=== PATIENT | female | born 1980 | race African-American/Black ===

== ENCOUNTER 2018-08-08 20:06 | Emergency (ER) | payer OTHER ==
[2018-08-08 20:15] VITALS: BP 117/71; PULSE 100; TEMP 98.5; BMI 26.2
[2018-08-08] MEDS ORDERED: ASPIRIN 81 MG CHEWABLE TABLETS PO ONE (21:25)
[2018-08-08] MEDS ORDERED: SODIUM CHLORIDE 1,000 ML IV ONE (21:25)
--- NOTE | 2018-08-08 21:44 | PDOC ---
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 At approx. 7pm while sitting on her bed, patient says she felt "[place]flies in my stomach" accompanied by sweating and palpitations. She then proceeded to the restroom to have a BM and shortly after felt chest and throat tightness. The tightness progressed and was accompanied by headache, dizziness and lightheadnesss. Her HR at this time was 133 and EMS was alerted. Upon arrival of EMS, her HR improved to 114 however her palpitations and abdominal discomfort continued. Denies any recent trauma, travel, sick contacts or recent medication changes. Denies any Fevers, chills, weakness, chest pain, SOB, nausea, vomiting, diarrhea , constipation, dysuria. PCP: Dr. Jefferson PMHx: As above PSHx: B/L Ovarian cyst removal Allergies: Seafood, Shellfish, Oats, PCN, Prednisone, Lipitor, Eliquism Azithromycin, Clindamycin, Augmentin Social: Denies Tobacco, EtOH and drug use FHx: Mother with HTN, Father with DM Past History - Past Medical History Allergies/Adverse Reactions: Allergies Allergy/AdvReac Type Severity Reaction Status Date / Time amoxicillin [From Augmentin] Allergy Verified 08/08/18 20:16 apixaban [From Eliquis] Allergy Verified 08/08/18 20:16 atorvastatin [From Lipitor] Allergy Verified 08/08/18 20:16 azithromycin Allergy Verified 08/08/18 20:16 clavulanic acid Allergy Verified 08/08/18 20:16 [From Augmentin] clindamycin Allergy Verified 08/08/18 20:16 Penicillins Allergy Verified 08/08/18 20:16 prednisone Allergy Verified 08/08/18 20:16 Anemia: Yes Asthma: Yes CVA: Yes (TIA) COPD: No Hypercholesterolemia: Yes Thyroid Disease: Yes (hyper) Other medical history: FIBROMYALGIA - Suicide/Smoking/Psychosocial Hx Smoking History: Never smoked Review of Systems - Review of Systems Constitutional: No: Chills, Fever, Weakness HEENTM: No: Double Vision Respiratory: No: Cough, Shortness of Breath Cardiac (ROS): Yes: Lightheadedness, Palpitations, Chest Tightness. No: Chest Pain, Edema ABD/GI: No: Abdominal Distended, Constipated, Diarrhea, Nausea, Vomiting : No: Dysuria, Hematuria Neurological: No: Numbness, Tingling *Physical Exam - Vital Signs Last Vital Signs Temp Pulse Resp BP Pulse Ox 98.5 F 100 H 18 117/71 99 08/08/18 20:12 08/08/18 20:12 08/08/18 20:12 08/08/18 20:12 08/08/18 20:12 - Physical Exam General Appearance: Yes: Nourished, Appropriately Dressed HEENT: positive: EOMI, SABRINA. negative: Pharyngeal Erythema, Tonsillar Exudate Respiratory/Chest: positive: Lungs Clear, Normal Breath Sounds. negative: Crackles, Rhonchi, Wheezing Cardiovascular: positive: Regular Rhythm, Regular Rate, S1, S2. negative: Edema , JVD, Murmur Gastrointestinal/Abdominal: positive: Normal Bowel Sounds, Soft. negative: Distended, Guarding, Rebound, Tenderness Musculoskeletal: negative: CVA Tenderness Extremity: negative: Swelling Neurologic: positive: head waitress II-XII NML intact, Fully Oriented, Alert, Motor Strength 5/5. negative: Sensory Deficit ED Treatment Course - LABORATORY CBC & Chemistry Diagram: 08/08/18 21:49 08/08/18 21:49 Medical Decision Making - Medical Decision Making 08/08/18 21:44 37 y/o F with PMHx of PE (now on coumadin, dx in 2013, Unprovoked, managed at [facility]), Hyperthyroidism, Meningioma, Asthma, Anemia, Gastroparesis, Fibromyalgia , HLD, Osteoporosis, Previous TIA presents with palpitations. Concern for Arrhythmia, metabolic derraingements, anemia, dehydration. Will Check EKG, CBC, CMP, Cardiac profile, CXR, PT/INR, TSH. Give 1L NS Bolus, ASA 162mg. Tele monitoring. 08/08/18 23:38 No further episodes of palpitations. Labwork noted above--Microcytic Anemia, Elevated INR, Hypokalemia. Potassium repleted. EKG Reveals Sinus rhythm with 1st degree AV Block, HR 88, QTc 457. Will Advise to hold Coumadin for tmrw. CXR did not reveal infiltrates or effusions. DC home with follow up with cardiology and PCP. Patient agreeable with plan. Return precautions given. *DC/Admit/Observation/Transfer Diagnosis at time of Disposition: Palpitations - Discharge Dispostion Disposition: HOME Condition at time of disposition: Stable Decision to Admit order: No - Referrals Referrals: Nancy Jay MD [Primary Care Provider] - Yogi Gunter MD [Staff Physician] - - Patient Instructions Additional Instructions: You presented to the ER with Palpitations. Your lab work revealed you are anemic. Please follow up with your PCP and Cardiology as you will likely need further monitoring (Such as a holter monitor)--Please call and make an appointment, Your work up is not complete until you do so. Your INR was above your goal; Hold your coumadin for tomorrow 08/09 only and resume on 08/10. Continue all your other medications as prescribed. Please return to the ER if you have any signs or symptoms of chest pain, shortness of breath, fever, uncontrollable pain, chills, nausea, vomiting, numbness, tingling, or weakness in any part of your body, changes in vision or slurred speech. Please return to the ER if symptoms persist, worsen, or new symptoms arise. - Post Discharge Activity
[2018-08-08] MEDS ORDERED: METOCLOPRAMIDE HCL INJECTION 10 MG/2 ML VIAL IVPUSH ONE (21:47)
[2018-08-08] MEDS ORDERED: ASPIRIN 81 MG CHEWABLE TABLETS ONE (21:51)
[2018-08-08] MEDS ORDERED: METOCLOPRAMIDE HCL INJECTION 10 MG/2 ML VIAL ONE (21:51)
[2018-08-08 21:59] LABS: BASO % 0.5 % (0-2.0); EOS % 0.9 % (0-4.5); HEMATOCRIT 25.4 % (32.4-45.2); HEMOGLOBIN 8.1 GM/dL (10.7-15.3); LYMPH % 25.2 % (8-40); MCH 24.3 pg (25.7-33.7); MCHC 31.8 g/dl (32.0-36.0); MEAN CELL VOLUME 76.4 fl (80-96); MEAN PLT VOLUME 7.7 fl (7.5-11.1); MONO % 6.7 % (3.8-10.2); NEUT % 66.7 % (42.8-82.8); PLATELET COUNT 255 K/MM3 (134-434); RBC 3.33 M/mm3 (3.60-5.2); RDW 15.8 % (11.6-15.6); WHITE BLOOD COUNT 4.6 K/mm3 (4.0-10.0)
--- NOTE | 2018-08-08 22:07 | PDOC ---
Documentation entered by Christopher Mackenzie SCRIBE, acting as scribe for Magdy Bryant MD. Magdy Bryant MD: This documentation has been prepared by the Gurdeep cedeno Daniel, SCRIBE, under my direction and personally reviewed by me in its entirety. I confirm that the documentation accurately reflects all work, treatment, procedures, and medical decision making performed by me. Attending Attestation - Resident Resident Name: Susanna Queen - ED Attending Attestation I have performed the following: I have examined & evaluated the patient, The case was reviewed & discussed with the resident, I agree w/resident's findings & plan, Exceptions are as noted - HPI HPI: 08/08/18 21:29 The patient is a 37 year old female with a past medical history of unprovoked PE (on coumadin), hyperthyroidism, gastroparesis, fibromyalgia, OA, and TIA here today for evaluation of palpitations and chest tightness. The patient reports that around 7 PM she began to feel butterflies in her stomach as well as chest tightness, palpitations, and general weakness why she was on her bed. She reports drinking water with no relief. She notes a similar episode of palpitations in the past and reports currently being symptomless. pt does endorse a mild pressure like headache currently without asociated vision changes , numbnes/tingling/weakness. pts notes she does not sleep very much, usually ~3hrs a night. Patient denies lightheadedness. Denies fever, chills. Denies chest pain, shortness of breath. Denies nausea, vomiting, diarrhea, abdominal pain. Denies urinary symptoms. Soc history: Pt denies any stimulant use, etoh abuse, drug use PCP: Juliette Jefferson - Physicial Exam PE: 08/08/18 22:01 GENERAL: The patient is awake, alert, and fully oriented, Nontoxic - in no acute distress. HEAD: Normocephalic, atraumatic. EYES: extraocular movements intact, sclera anicteric, conjunctiva clear. ENT: Normal voice, Moist mucous membranes. NECK: Normal range of motion, supple, no palpable masses LUNGS: Breath sounds equal, clear to auscultation bilaterally. No wheezes, no rhonchi, no rales. HEART: Regular rate and rhythm, normal S1 and S2 without murmur, rub or gallop. ABDOMEN: Soft, nontender, No guarding, no rebound. . No CVA tenderness EXTREMITIES: Normal range of motion, no edema. NEUROLOGICAL: No facial assymetry, Normal speech, PSYCH: Normal mood, normal affect. SKIN: Warm, Dry, normal turgor, - Medical Decision Making 08/08/18 21:19 37y F hx of PE (on coumadin), hyperthyriodism, gastroparesis, fibromyalgia, OA, TIA, presents with complaint of 'butterflies in her stomach', throat and chest tightness, palpitations lasting several hours. Pt notes she frequently feels these sypmtoms - almost daily but today was much longer than usual. Pt has seen her doc previously and recently had her TSH checked (but hasnt received results) . pt feeling improved currently but does endorse a mild headache. ddx - hyperthyroidism , anemia, metabolic derangement, dehdyration, anxiety will ck labs, ekg will give fluids, reglan will reassess 08/08/18 23:09 labs reviewed noted to be mildly anemic k at 3.4 -will replete orally tsh wnl will dc wiht pmd fu 08/08/18 23:45 cxr clear on my wet read ekg noted for 1st degree block, otherwise wnl will dc with pmd fu return precautions were discussed Heart Score/ECG Review - ECG Impressions Comment:: 08/08/18 23:45 Twelve-lead EKG was performed and reviewed by me. There is normal sinus rhythm with a normal rate. First degree AV block
[2018-08-08 22:14] LABS: INR 3.23 (0.83-1.09); PROTHROMBIN TIME (PATIENT) 38.6 SEC (9.7-13.0)
[2018-08-08 22:27] LABS: ALBUMIN 3.3 g/dl (3.4-5.0); ALK PHOS 76 U/L (45-117); ANION GAP 7 MMOL/L (8-16); BILIRUBIN,TOTAL 0.1 mg/dL (0.2-1); BLOOD UREA NITROGEN 9.4 mg/dL (7-18); CALCIUM 8.5 mg/dL (8.5-10.1); CHLORIDE 109 mmol/L (98-107); CO2 25 mmol/L (21-32); CREATININE 0.7 mg/dL (0.55-1.3); GLUCOSE,RANDOM 100 mg/dL (74-106); POTASSIUM 3.4 mmol/L (3.5-5.1); SGOT/AST 3 U/L (15-37); SGPT/ALT 14 U/L (13-61); SODIUM 141 mmol/L (136-145); TOT PROT 6.9 g/dl (6.4-8.2)
[2018-08-08] MEDS ORDERED: POTASSIUM CHLORIDE ORAL LIQUID 20 MEQ/15 ML PO ONE (22:40)
[2018-08-08] MEDS ORDERED: POTASSIUM CHLORIDE ORAL LIQUID 20 MEQ/15 ML ONE (22:41)
[2018-08-08] MEDS: POTASSIUM CHLORIDE TABS 20 MEQ TABLET.ER (FP) PO ONE ×2 (22:43→22:44)
--- NOTE | 2018-08-09 13:36 | EKG ---
Test Reason : Blood Pressure : / mmHG Vent. Rate : 088 BPM Atrial Rate : 088 BPM P-R Int : 218 ms QRS Dur : 086 ms QT Int : 378 ms P-R-T Axes : 067 069 068 degrees QTc Int : 457 ms SINUS RHYTHM WITH 1ST DEGREE A-V BLOCK OTHERWISE NORMAL ECG NO PREVIOUS ECGS AVAILABLE Confirmed by TRACY CHAVEZ MD ([id number]) on 08/09/2018 1:36:22 PM Referred By: Confirmed By:TRACY CHAVEZ MD
== END 2018-08-08 23:49 | disposition home or self-care (01) ==
LOC: JER 20:06
PROC: 3E0337Z Introduction of Electrolytic and Water Balance Substance into Peripheral Vein, Percutaneous Approach (ICD-10-PCS; principal; 2018-08-08)
PROC: 3E033GC Introduction of Other Therapeutic Substance into Peripheral Vein, Percutaneous Approach (ICD-10-PCS; 2018-08-08)
PROC: 3E033GC Introduction of Other Therapeutic Substance into Peripheral Vein, Percutaneous Approach (ICD-10-PCS; 2018-08-08)
DX: R00.2 Palpitations (principal); E87.6 Hypokalemia; D50.9 Iron deficiency anemia, unspecified; D68.9 Coagulation defect, unspecified; E05.90 Thyrotoxicosis, unspecified without thyrotoxic crisis or storm; K31.84 Gastroparesis; J45.909 Unspecified asthma, uncomplicated; M19.90 Unspecified osteoarthritis, unspecified site; M79.7 Fibromyalgia; E78.5 Hyperlipidemia, unspecified; Z86.711 Personal history of pulmonary embolism; Z79.01 Long term (current) use of anticoagulants; Z86.73 Personal history of transient ischemic attack (TIA), and cerebral infarction without residual deficits
CPT/HCPCS: 36415; 71046-TC-FY; 80053; 82550; 83735; 84443; 84484; 84703; 85025; 85610; 93005; 93010; 99282-25; J7030

== ENCOUNTER 2020-03-10 10:13 | Inpatient (IN) | payer OTHER ==
[2020-03-10] MEDS ORDERED: SODIUM CHLORIDE 1,000 ML IV SCH (11:00)
[2020-03-10] MEDS ORDERED: ACETAMINOPHEN INJECTION 100 ML IVPB ONE (11:00)
[2020-03-10] MEDS ORDERED: METOCLOPRAMIDE HCL INJECTION 10 MG/2 ML VIAL ONE (11:00)
[2020-03-10] MEDS ORDERED: METOCLOPRAMIDE HCL INJECTION 10 MG/2 ML VIAL IVPB ONE (11:11)
[2020-03-10] MEDS ORDERED: ACETAMINOPHEN 1000 MG/100 ML VIAL (NON FORMULARY) IVPB ONE (11:11)
[2020-03-10 11:28] LABS: URINE APPEARANCE CLOUDY; URINE BILIRUBIN NEGATIVE (NEGATIVE); URINE COLOR YELLOW; URINE GLUCOSE (UA) NEGATIVE (NEGATIVE); URINE KETONE NEGATIVE (NEGATIVE); URINE LEUK ESTERASE NEGATIVE (NEGATIVE); URINE NITRITE NEGATIVE (NEGATIVE); URINE PROTEIN NEGATIVE (NEGATIVE); URINE UROBILINOGEN 0.2 mg/dL (0.2-1.0)
[2020-03-10 11:30] LABS: BASO % 0.2 % (0-2.0); HEMATOCRIT 34.5 % (32.4-45.2); HEMOGLOBIN 11.1 GM/dL (10.7-15.3); LYMPH % 21.9 % (8-40); MCH 27.6 pg (25.7-33.7); MCHC 32.1 g/dl (32.0-36.0); MEAN CELL VOLUME 85.9 fl (80-96); MEAN PLT VOLUME 7.7 fl (7.5-11.1); MONO % 6.1 % (3.8-10.2); NEUT % 70.8 % (42.8-82.8); PLATELET COUNT 236 K/MM3 (134-434); RBC 4.01 M/mm3 (3.60-5.2); RDW 24.3 % (11.6-15.6); WHITE BLOOD COUNT 3.5 K/mm3 (4.0-10.0)
[2020-03-10 11:36] LABS: INR 2.22 (0.83-1.09); PROTHROMBIN TIME (PATIENT) 26.7 SEC (9.7-13.0)
[2020-03-10 11:39] LABS: ACTIVATED PTT 37.9 SECONDS (25.2-36.5)
[2020-03-10 11:54] LABS: CHLORIDE 110 mmol/L (98-107); POTASSIUM 3.6 mmol/L (3.5-5.1); SODIUM 143 mmol/L (136-145)
[2020-03-10 11:57] LABS: CALCIUM 8.9 mg/dL (8.5-10.1)
[2020-03-10 11:58] LABS: ALBUMIN 3.8 g/dl (3.4-5.0); ANION GAP 3 MMOL/L (8-16); BLOOD UREA NITROGEN 9.2 mg/dL (7-18); CO2 29 mmol/L (21-32); GLUCOSE,RANDOM 88 mg/dL (74-106)
[2020-03-10 11:59] LABS: CHOLESTEROL 239 mg/dL (50-200); CREATININE 0.7 mg/dL (0.55-1.3)
[2020-03-10 12:00] LABS: TRIGLYCERIDES 85 mg/dL (0-150)
[2020-03-10 12:01] LABS: LDL CHOLESTEROL (ONLY SJRH) 150 mg/dL (5-100); SGOT/AST 7 U/L (15-37); SGPT/ALT 15 U/L (13-61)
[2020-03-10 12:02] LABS: BILIRUBIN,TOTAL 0.4 mg/dL (0.2-1); HDL CHOLESTEROL 67 mg/dL (40-60); TOT PROT 7.4 g/dl (6.4-8.2)
[2020-03-10 12:04] LABS: ALK PHOS 78 U/L (45-117)
[2020-03-10 12:14] LABS: ANISOCYTOSIS 1+; MACROCYTOSIS 1+; OVALOCYTE 1+; PLATELET ESTIMATE NORMAL
[2020-03-10] MEDS ORDERED: HYDROCORTISONE SOD SUCCINATE 100 MG/2 ML VIAL ONE ×2 (13:32→15:33)
[2020-03-10] MEDS: HYDROCORTISONE SOD SUCCINATE 100 MG/2 ML VIAL IVPB ONE ×2 (13:32→14:20)
[2020-03-10] MEDS ORDERED: ALBUTEROL SO4 HFA INHALER IH PRN (15:27)
[2020-03-10] MEDS ORDERED: PANTOPRAZOLE SODIUM 40 MG VIAL ONE (15:33)
[2020-03-10] MEDS: PANTOPRAZOLE SODIUM 40 MG VIAL IVPUSH SCH (15:50)
[2020-03-10] MEDS ORDERED: HYDROCORTISONE SOD SUCCINATE 100 MG/2 ML VIAL IVPB ONE (16:40)
[2020-03-10 17:33] LABS: CHLORIDE 110 mmol/L (98-107); POTASSIUM 3.4 mmol/L (3.5-5.1); SODIUM 141 mmol/L (136-145)
[2020-03-10 17:35] LABS: ALBUMIN 3.5 g/dl (3.4-5.0); ANION GAP 4 MMOL/L (8-16); BLOOD UREA NITROGEN 8.4 mg/dL (7-18); CALCIUM 8.4 mg/dL (8.5-10.1); CO2 27 mmol/L (21-32); GLUCOSE,RANDOM 83 mg/dL (74-106)
[2020-03-10 17:38] LABS: CREATININE 0.6 mg/dL (0.55-1.3); SGOT/AST 5 U/L (15-37); SGPT/ALT 14 U/L (13-61)
[2020-03-10 17:40] LABS: BILIRUBIN,TOTAL 0.2 mg/dL (0.2-1); TOT PROT 6.8 g/dl (6.4-8.2)
[2020-03-10 17:41] LABS: ALK PHOS 74 U/L (45-117)
[2020-03-10] MEDS ORDERED: POTASSIUM CHLORIDE TABS 20 MEQ TABLET.ER (FP) PO ONE (18:18)
[2020-03-10 18:29] VITALS: BMI 24.0
[2020-03-10] MEDS ORDERED: methylPREDNISolone 8 MG TABLET PO SCH (21:00)
[2020-03-10] MEDS ORDERED: PT OWN MED DRAWER 7, Y5N ONE (23:03)
[2020-03-10] MEDS: QUEtiapine FUMARATE 200 MG TABLET PO SCH (23:33)
[2020-03-10] MEDS: OXcarbazepine 150 MG TABLET (UD) PO SCH (23:34)
[2020-03-11] MEDS ORDERED: PT OWN MED DRAWER 7, Y5N ONE (05:23)
[2020-03-11] MEDS ORDERED: diphenhydrAMINE HCL 25 MG CAPSULE (FP) PO ONE (08:00)
[2020-03-11 08:22] LABS: POTASSIUM 3.5 mmol/L (3.5-5.1)
[2020-03-11 08:24] LABS: CALCIUM 8.4 mg/dL (8.5-10.1); INR 2.49 (0.83-1.09); PROTHROMBIN TIME (PATIENT) 29.3 SEC (9.7-13.0)
[2020-03-11 08:25] LABS: BLOOD UREA NITROGEN 8.4 mg/dL (7-18); MAGNESIUM 1.8 mg/dL (1.8-2.4)
[2020-03-11 08:26] LABS: BASO % 0.3 % (0-2.0); EOS % 1.6 % (0-4.5); HEMATOCRIT 31.2 % (32.4-45.2); HEMOGLOBIN 10.3 GM/dL (10.7-15.3); MCH 28.3 pg (25.7-33.7); MCHC 33.2 g/dl (32.0-36.0); MEAN CELL VOLUME 85.2 fl (80-96); MEAN PLT VOLUME 7.8 fl (7.5-11.1); NEUT % 54.1 % (42.8-82.8); PLATELET COUNT 228 K/MM3 (134-434); RBC 3.66 M/mm3 (3.60-5.2); RDW 23.9 % (11.6-15.6); WHITE BLOOD COUNT 4.2 K/mm3 (4.0-10.0)
[2020-03-11 08:28] LABS: CREATININE 0.6 mg/dL (0.55-1.3); PHOSPHOROUS 2.1 mg/dL (2.5-4.9)
[2020-03-11] MEDS: QUEtiapine FUMARATE 200 MG TABLET PO SCH (10:05)
[2020-03-11] MEDS: OXcarbazepine 150 MG TABLET (UD) PO SCH (10:05)
[2020-03-11] MEDS: PANTOPRAZOLE SODIUM 40 MG VIAL IVPUSH SCH (10:05)
[2020-03-11 15:28] VITALS: BP 95/63; PULSE 78; TEMP 98.1
[2020-03-11] MEDS ORDERED: WARFARIN NA 3 MG TABLET PO SCH (18:00)
== END 2020-03-11 18:03 | disposition home or self-care (01) | DRG 55 ==
LOC: JER 10:13 → JERBED 13:57 → J4S 18:32 → J4W 03-11 07:09
PROVIDERS: ATTEND Nurse Practitioner Family
DX: D42.9 Neoplasm of uncertain behavior of meninges, unspecified (principal); G40.89 Other seizures; I69.854 Hemiplegia and hemiparesis following other cerebrovascular disease affecting left non-dominant side; I69.351 Hemiplegia and hemiparesis following cerebral infarction affecting right dominant side; R20.0 Anesthesia of skin; E05.90 Thyrotoxicosis, unspecified without thyrotoxic crisis or storm; M79.7 Fibromyalgia; E78.5 Hyperlipidemia, unspecified; R51.9 Headache, unspecified; R07.89 Other chest pain; J45.909 Unspecified asthma, uncomplicated; F41.8 Other specified anxiety disorders
CPT/HCPCS: 36415; 70450-TC; 70551-TC; 70552-TC; 71045-TC-FY; 80048; 80053; 80061; 81003; 82550; 83721; 83735; 84100; 84439; 84443; 84481; 84484; 85025; 85610; 85730; 86769; 86850; 86900; 86901; 93005; 93010; 93306-TC; 93880-TC; 97116-GP; 97161-GP; 99285-25; A9579; C9803; U0003

== ENCOUNTER 2020-03-16 10:54 | Emergency (ER) | payer OTHER ==
[2020-03-16 11:23] VITALS: TEMP 98.5; BMI 24.4
[2020-03-16] MEDS ORDERED: ACETAMINOPHEN 1000 MG/100 ML VIAL (NON FORMULARY) IVPB ONE (11:50)
[2020-03-16] MEDS ORDERED: LACTATED RINGERS SOLUTION 1000 ML INFUS.BAG IV ONE (11:50)
[2020-03-16 12:03] LABS: BASO % 0.2 % (0-2.0); EOS % 4.1 % (0-4.5); HEMATOCRIT 32.3 % (32.4-45.2); HEMOGLOBIN 10.6 GM/dL (10.7-15.3); LYMPH % 22.9 % (8-40); MCHC 32.9 g/dl (32.0-36.0); MEAN CELL VOLUME 84.9 fl (80-96); MEAN PLT VOLUME 7.6 fl (7.5-11.1); MONO % 5.7 % (3.8-10.2); NEUT % 67.1 % (42.8-82.8); PLATELET COUNT 219 K/MM3 (134-434); RBC 3.81 M/mm3 (3.60-5.2); RDW 22.6 % (11.6-15.6); WHITE BLOOD COUNT 3.8 K/mm3 (4.0-10.0)
[2020-03-16] MEDS ORDERED: ACETAMINOPHEN INJECTION 100 ML IVPB ONE (12:06)
[2020-03-16 12:10] LABS: INR 1.93 (0.83-1.09); PROTHROMBIN TIME (PATIENT) 23.3 SEC (9.7-13.0)
[2020-03-16 12:13] LABS: ACTIVATED PTT 33.9 SECONDS (25.2-36.5)
[2020-03-16 12:30] LABS: POTASSIUM 3.6 mmol/L (3.5-5.1)
[2020-03-16 12:32] LABS: ALBUMIN 3.3 g/dl (3.4-5.0); BLOOD UREA NITROGEN 12.2 mg/dL (7-18); CALCIUM 8.5 mg/dL (8.5-10.1)
[2020-03-16 12:35] LABS: CREATININE 0.7 mg/dL (0.55-1.3)
[2020-03-16 12:37] LABS: BILIRUBIN,TOTAL 0.2 mg/dL (0.2-1); TOT PROT 6.6 g/dl (6.4-8.2)
[2020-03-16 13:00] LABS: ANISOCYTOSIS 1+; MACROCYTOSIS 1+; PLATELET ESTIMATE NORMAL
[2020-03-16 13:33] LABS: MAGNESIUM 1.9 mg/dL (1.8-2.4)
[2020-03-16 14:24] VITALS: BP 94/61; PULSE 88
== END 2020-03-16 14:24 | disposition home or self-care (01) ==
LOC: JER 10:54
DX: R00.2 Palpitations (principal)
CPT/HCPCS: 36415; 80053; 83735; 85025; 85610; 85730; 93005; 93010; 99284-25

== ENCOUNTER 2020-08-23 10:08 | Observation (INO) | payer OTHER ==
[2020-08-23 11:20] LABS: BASO % 0.3 % (0-2.0); EOS % 1.4 % (0-4.5); HEMATOCRIT 34.3 % (32.4-45.2); HEMOGLOBIN 11.4 GM/dL (10.7-15.3); LYMPH % 27.6 % (8-40); MCH 27.5 pg (25.7-33.7); MCHC 33.1 g/dl (32.0-36.0); MEAN CELL VOLUME 82.9 fl (80-96); MEAN PLT VOLUME 7.6 fl (7.5-11.1); MONO % 4.7 % (3.8-10.2); PLATELET COUNT 225 10^3/uL (134-434); RBC 4.14 M/mm3 (3.60-5.2); RDW 19.3 % (11.6-15.6); WHITE BLOOD COUNT 3.1 K/mm3 (4.0-10.0)
[2020-08-23 11:26] LABS: INR 3.27 (0.83-1.09); PROTHROMBIN TIME (PATIENT) 38.9 SEC (9.7-13.0)
[2020-08-23 11:29] LABS: ACTIVATED PTT 40.4 SECONDS (25.2-36.5)
[2020-08-23 11:41] LABS: CHLORIDE 110 mmol/L (98-107); SODIUM 143 mmol/L (136-145)
[2020-08-23 11:43] LABS: ALBUMIN 3.8 g/dl (3.4-5.0); CALCIUM 8.6 mg/dL (8.5-10.1)
[2020-08-23 11:44] LABS: ANION GAP 7 MMOL/L (8-16); BLOOD UREA NITROGEN 8.2 mg/dL (7-18); CO2 25 mmol/L (21-32); GLUCOSE,RANDOM 88 mg/dL (74-106)
[2020-08-23 11:47] LABS: CREATININE 0.6 mg/dL (0.55-1.3); SGOT/AST 8 U/L (15-37); SGPT/ALT 15 U/L (13-61)
[2020-08-23 11:48] LABS: BILIRUBIN,TOTAL 0.2 mg/dL (0.2-1); TOT PROT 7.8 g/dl (6.4-8.2)
[2020-08-23 11:50] LABS: ALK PHOS 76 U/L (45-117)
[2020-08-23] MEDS: ACETAMINOPHEN 1000 MG/100 ML VIAL (NON FORMULARY) IVPB ONE ×2 (11:55→12:04)
[2020-08-23] MEDS ORDERED: ACETAMINOPHEN INJECTION 100 ML IVPB ONE (12:00)
[2020-08-23 13:00] LABS: CHOLESTEROL 233 mg/dL (50-200)
[2020-08-23 13:01] LABS: TRIGLYCERIDES 86 mg/dL (0-150)
[2020-08-23 13:02] LABS: LDL CHOLESTEROL (ONLY SJRH) 154 mg/dL (5-100)
[2020-08-23 13:03] LABS: HDL CHOLESTEROL 59 mg/dL (40-60)
[2020-08-23 20:40] LABS: URINE APPEARANCE CLOUDY; URINE BILIRUBIN NEGATIVE (NEGATIVE); URINE COLOR RED; URINE GLUCOSE (UA) NEGATIVE (NEGATIVE); URINE PROTEIN NEGATIVE (NEGATIVE)
[2020-08-23 20:47] LABS: EPI CELLS 0-1 /uL (0-25.1); HYALINE CASTS 0 /uL (0-3.1); URINE BACTERIA FEW /uL (0-1359); URINE RBC >100 /uL (0-23.9); URINE WBC 0-4 /uL (0-25.8)
[2020-08-23 21:00] VITALS: BMI 23.3
[2020-08-23] MEDS ORDERED: PT OWN MED DRAWER 7, Y5N ONE (21:26)
[2020-08-23] MEDS: QUEtiapine FUMARATE 200 MG TABLET PO SCH (22:52)
[2020-08-23] MEDS: OXcarbazepine 150 MG TABLET (UD) PO SCH (22:52)
[2020-08-23] MEDS ORDERED: LIDOCAINE 5% TOPICAL PATCH TP ONE (23:27)
[2020-08-24] MEDS: LIDOCAINE PATCH REMOVAL MC SCH ×2 (01:03→22:09)
[2020-08-24 09:05] LABS: INR 3.33 (0.83-1.09); PROTHROMBIN TIME (PATIENT) 39.5 SEC (9.7-13.0)
[2020-08-24 09:06] LABS: BASO % 0.6 % (0-2.0); EOS % 1.4 % (0-4.5); HEMATOCRIT 32.4 % (32.4-45.2); HEMOGLOBIN 10.4 GM/dL (10.7-15.3); LYMPH % 29.1 % (8-40); MCH 26.9 pg (25.7-33.7); MCHC 32.3 g/dl (32.0-36.0); MEAN CELL VOLUME 83.3 fl (80-96); MEAN PLT VOLUME 7.7 fl (7.5-11.1); MONO % 7.5 % (3.8-10.2); NEUT % 61.4 % (42.8-82.8); PLATELET COUNT 244 10^3/uL (134-434); RBC 3.88 M/mm3 (3.60-5.2); RDW 19.5 % (11.6-15.6); WHITE BLOOD COUNT 3.3 K/mm3 (4.0-10.0)
[2020-08-24 09:26] LABS: ALBUMIN 3.4 g/dl (3.4-5.0); BLOOD UREA NITROGEN 11.7 mg/dL (7-18); CALCIUM 8.6 mg/dL (8.5-10.1)
[2020-08-24 09:29] LABS: CREATININE 0.6 mg/dL (0.55-1.3)
[2020-08-24 09:31] LABS: BILIRUBIN,TOTAL 0.3 mg/dL (0.2-1); TOT PROT 6.9 g/dl (6.4-8.2)
[2020-08-24] MEDS: QUEtiapine FUMARATE 200 MG TABLET PO SCH ×2 (10:44→22:11)
[2020-08-24] MEDS: metoPROLOL SUCCINATE 25 MG TAB.SR.24H (FP) PO SCH ×2 (10:44→11:48)
[2020-08-24] MEDS: OXcarbazepine 150 MG TABLET (UD) PO SCH ×2 (10:44→22:11)
[2020-08-24] MEDS ORDERED: WARFARIN NA 5 MG, WARFARIN NA 2 MG PO SCH (18:00)
[2020-08-24] MEDS ORDERED: WARFARIN NA 2 MG TABLET PO SCH ×2 (18:00)
[2020-08-24] MEDS ORDERED: ROSUVASTATIN CA 10 MG TABLET (FP) PO SCH (22:00)
[2020-08-25 06:01] VITALS: BP 92/65; PULSE 88; TEMP 98.5
[2020-08-25 07:36] LABS: HEMATOCRIT 29.5 % (32.4-45.2); HEMOGLOBIN 9.6 GM/dL (10.7-15.3); MCHC 32.7 g/dl (32.0-36.0); MEAN CELL VOLUME 82.7 fl (80-96); MEAN PLT VOLUME 8.1 fl (7.5-11.1); PLATELET COUNT 229 10^3/uL (134-434); RBC 3.56 M/mm3 (3.60-5.2); RDW 19.3 % (11.6-15.6); WHITE BLOOD COUNT 3.3 K/mm3 (4.0-10.0)
[2020-08-25 07:48] LABS: ALBUMIN 3.2 g/dl (3.4-5.0); CALCIUM 8.2 mg/dL (8.5-10.1)
[2020-08-25 07:49] LABS: BLOOD UREA NITROGEN 15.2 mg/dL (7-18); MAGNESIUM 1.9 mg/dL (1.8-2.4)
[2020-08-25 07:51] LABS: CREATININE 0.7 mg/dL (0.55-1.3)
[2020-08-25 07:52] LABS: PHOSPHOROUS 2.8 mg/dL (2.5-4.9)
[2020-08-25 07:53] LABS: BILIRUBIN,TOTAL 0.7 mg/dL (0.2-1); TOT PROT 6.6 g/dl (6.4-8.2)
[2020-08-25 08:59] LABS: INR 2.82 (0.83-1.09); PROTHROMBIN TIME (PATIENT) 33.6 SEC (9.7-13.0)
[2020-08-25] MEDS ORDERED: PT OWN MED DRAWER 7, Y5N ONE (09:25)
[2020-08-25] MEDS: QUEtiapine FUMARATE 200 MG TABLET PO SCH (09:59)
[2020-08-25] MEDS: OXcarbazepine 150 MG TABLET (UD) PO SCH (10:00)
[2020-08-25] MEDS: metoPROLOL SUCCINATE 25 MG TAB.SR.24H (FP) PO SCH (10:00)
== END 2020-08-25 14:45 | disposition home or self-care (01) ==
LOC: JER 10:08 → INTOOBSV 13:45 → JERBED 13:45 → UNDOADMOB 13:45 → J4W 20:44 → JERBED 20:44 → J4W 08-24 08:22 → JERBED 08-24 08:22
PROVIDERS: ATTEND Student in an Organized Health Care Education/Training Program
DX: R20.0 Anesthesia of skin (principal); R20.2 Paresthesia of skin; I10 Essential (primary) hypertension; Z79.01 Long term (current) use of anticoagulants; D32.9 Benign neoplasm of meninges, unspecified; E78.00 Pure hypercholesterolemia, unspecified; R56.9 Unspecified convulsions; E05.90 Thyrotoxicosis, unspecified without thyrotoxic crisis or storm; J45.909 Unspecified asthma, uncomplicated; M79.7 Fibromyalgia; G43.909 Migraine, unspecified, not intractable, without status migrainosus; I63.9 Cerebral infarction, unspecified; G81.91 Hemiplegia, unspecified affecting right dominant side; Z88.8 Allergy status to other drugs, medicaments and biological substances
CPT/HCPCS: 36415; 70450-TC; 70551-TC; 72125-TC; 73562-TC-LT-FY; 80053; 80061; 81003; 82550; 83036; 83721; 83735; 84100; 84443; 84484; 84703; 85025; 85027; 85610; 85730; 86780; 86850; 86900; 86901; 93005; 93010; 93880-TC; 97116-GP; 97161-GP; 99285-25; C9803; G0378; J0131; U0003; U0005

== ENCOUNTER → 2021-08-30 | Day surgery (SDC) | payer OTHER | END | disposition home or self-care (01) | LOC: JRADIR 09:17 | PROVIDERS: ATTEND Internal Medicine Endocrinology, Diabetes & Metabolism | PROC: 0G9K3ZX Drainage of Thyroid Gland, Percutaneous Approach, Diagnostic (ICD-10-PCS; principal; 2021-08-30) | DX: E04.1 Nontoxic single thyroid nodule (principal) | CPT/HCPCS: 10005; 76942; 88173; 88305-TC ==

== ENCOUNTER 2021-10-01 12:27 | Observation (INO) | payer OTHER ==
[2021-10-01 13:01] VITALS: BMI 23.2
[2021-10-01 13:44] LABS: HEMATOCRIT 31.8 % (32.4-45.2); HEMOGLOBIN 10.7 GM/dL (10.7-15.3); MCH 28.7 pg (25.7-33.7); MCHC 33.5 g/dl (32.0-36.0); MEAN CELL VOLUME 85.6 fl (80-96); MEAN PLT VOLUME 7.6 fl (7.5-11.1); PLATELET COUNT 206 10^3/uL (134-434); RBC 3.72 M/mm3 (3.60-5.2); RDW 13.9 % (11.6-15.6); WHITE BLOOD COUNT 3.4 K/mm3 (4.0-10.0)
[2021-10-01 13:51] LABS: INR 3.4 (0.83-1.09); PROTHROMBIN TIME (PATIENT) 39.6 SEC (9.7-13.0)
[2021-10-01 13:53] LABS: ACTIVATED PTT 43.5 SECONDS (25.2-36.5)
[2021-10-01 13:58] LABS: ALBUMIN 3.3 g/dl (3.4-5.0); BLOOD UREA NITROGEN 8.8 mg/dL (7-18); CALCIUM 8.2 mg/dL (8.5-10.1)
[2021-10-01 14:01] LABS: CREATININE 0.7 mg/dL (0.55-1.3)
[2021-10-01 14:03] LABS: BILIRUBIN,TOTAL 0.3 mg/dL (0.2-1); TOT PROT 6.9 g/dl (6.4-8.2)
[2021-10-01] MEDS ORDERED: POTASSIUM CHLORIDE TABS 20 MEQ TABLET.ER (FP) PO ONE ×2 (16:03→16:32)
[2021-10-01] MEDS ORDERED: ASPIRIN 81 MG CHEWABLE TABLETS PO ONE (16:32)
[2021-10-01] MEDS ORDERED: ASPIRIN 300 MG SUPP.RECT PR ONE (16:34)
[2021-10-01] MEDS ORDERED: POTASSIUM CHLORIDE ORAL LIQUID 20 MEQ/15 ML PO ONE (16:35)
[2021-10-01] MEDS ORDERED: ASPIRIN 300 MG SUPP.RECT RC ONE (16:38)
[2021-10-01] MEDS ORDERED: POTASSIUM CHLORIDE ORAL LIQUID 20 MEQ/15 ML ONE (16:38)
[2021-10-01] MEDS ORDERED: ALPRAZolam 1 MG TABLET PO PRN (17:08)
[2021-10-01 18:27] LABS: PROTHROMBIN TIME (PATIENT) 36.5 SEC (9.7-13.0)
[2021-10-01 18:28] LABS: INR 3.14 (0.83-1.09)
[2021-10-01] MEDS ORDERED: ROSUVASTATIN CA 10 MG TABLET PO SCH (22:00)
[2021-10-01] MEDS ORDERED: QUEtiapine FUMARATE 100 MG TABLET (FP) ONE (22:56)
[2021-10-01] MEDS ORDERED: GABAPENTIN 300 MG CAPSULE ONE (22:56)
[2021-10-02] MEDS: GABAPENTIN 300 MG CAPSULE PO SCH ×2 (00:52→09:27)
[2021-10-02] MEDS: QUEtiapine FUMARATE 100 MG TABLET (FP) PO SCH ×2 (00:52→09:27)
[2021-10-02] MEDS: OXcarbazepine 150 MG TABLET (UD) PO SCH ×2 (00:52→09:28)
[2021-10-02] MEDS ORDERED: LACTATED RINGERS SOLUTION 1,000 ML/1,000 ML INFUS.BAG IV SCH (06:00)
[2021-10-02] MEDS ORDERED: PANTOPRAZOLE 40 MG TABLET PO ONE (09:29)
[2021-10-02] MEDS ORDERED: PANTOPRAZOLE 40 MG TABLET PO SCH (10:00)
[2021-10-02] MEDS ORDERED: MONTELUKAST NA 10 MG TABLET PO SCH (10:00)
[2021-10-02] MEDS ORDERED: metoPROLOL SUCCINATE 25 MG TAB.SR.24H (FP) PO SCH (10:00)
[2021-10-02 15:23] VITALS: RESP 18
[2021-10-02 19:56] VITALS: BP 114/78; PULSE 86; TEMP 99.8
== END 2021-10-02 20:26 | disposition home or self-care (01) ==
LOC: JER 12:27 → JERBED 16:14 → J4W 10-02 10:11
PROVIDERS: ADMIT Internal Medicine; ATTEND Internal Medicine
PROC: 3E0337Z Introduction of Electrolytic and Water Balance Substance into Peripheral Vein, Percutaneous Approach (ICD-10-PCS; principal; 2021-10-01)
DX: R56.9 Unspecified convulsions (principal); Z86.711 Personal history of pulmonary embolism; K21.9 Gastro-esophageal reflux disease without esophagitis; D64.9 Anemia, unspecified; E78.00 Pure hypercholesterolemia, unspecified; E07.9 Disorder of thyroid, unspecified; R11.0 Nausea; R06.02 Shortness of breath; Z86.73 Personal history of transient ischemic attack (TIA), and cerebral infarction without residual deficits; R20.2 Paresthesia of skin; R07.9 Chest pain, unspecified; R00.0 Tachycardia, unspecified; Z86.718 Personal history of other venous thrombosis and embolism; Z79.01 Long term (current) use of anticoagulants; M79.7 Fibromyalgia; J45.909 Unspecified asthma, uncomplicated
CPT/HCPCS: 36415; 71045-TC-FY; 71275-TC; 80053; 83880; 84436; 84439; 84443; 84484; 84703; 85027; 85610; 85730; 86850; 86900; 86901; 93005; 93010; 96360; 99285-25; C9803-CS; G0378; Q9967; U0003; U0005

== ENCOUNTER 2022-01-17 11:18 | Emergency (ER) | payer OTHER ==
[2022-01-17 11:46] VITALS: TEMP 98.8; BMI 25.0
[2022-01-17 13:16] LABS: BASO % 0.4 % (0-2.0); EOS % 1.4 % (0-4.5); HEMATOCRIT 30.1 % (32.4-45.2); HEMOGLOBIN 9.8 GM/dL (10.7-15.3); LYMPH % 24.9 % (8-40); MCH 28.3 pg (25.7-33.7); MCHC 32.6 g/dl (32.0-36.0); MONO % 6.2 % (3.8-10.2); NEUT % 67.1 % (42.8-82.8); PLATELET COUNT 277 10^3/uL (134-434); RBC 3.46 M/mm3 (3.60-5.2); RDW 13.2 % (11.6-15.6); WHITE BLOOD COUNT 4.2 K/mm3 (4.0-10.0)
[2022-01-17 13:29] LABS: INR 2.38 (0.83-1.09); PROTHROMBIN TIME (PATIENT) 27.6 SEC (9.7-13.0)
[2022-01-17 13:34] LABS: CHLORIDE 109 mmol/L (98-107); SODIUM 142 mmol/L (136-145)
[2022-01-17 13:36] LABS: ALBUMIN 3.3 g/dl (3.4-5.0); ANION GAP 7 MMOL/L (8-16); BLOOD UREA NITROGEN 9.3 mg/dL (7-18); CALCIUM 8.8 mg/dL (8.5-10.1); CO2 26 mmol/L (21-32); GLUCOSE,RANDOM 98 mg/dL (74-106); MAGNESIUM 1.9 mg/dL (1.8-2.4)
[2022-01-17 13:39] LABS: CREATININE 0.7 mg/dL (0.55-1.3); SGOT/AST 25 U/L (15-37); SGPT/ALT 17 U/L (13-61)
[2022-01-17 13:41] LABS: BILIRUBIN,TOTAL 0.2 mg/dL (0.2-1); TOT PROT 7.1 g/dl (6.4-8.2)
[2022-01-17 13:42] LABS: ALK PHOS 63 U/L (45-117)
[2022-01-17 14:13] VITALS: BP 95/55; PULSE 89; RESP 21
== END 2022-01-17 16:47 | disposition home or self-care (01) ==
LOC: JER 11:18
DX: R00.0 Tachycardia, unspecified (principal)
CPT/HCPCS: 36415; 71045-TC-FY; 71275-TC; 80053; 83735; 84484; 84702; 85025; 85610; 93005; 93010; 99285-25

== ENCOUNTER 2022-05-31 10:37 | Emergency (ER) | payer OTHER ==
[2022-05-31 11:54] VITALS: TEMP 99; BMI 24.6
[2022-05-31] MEDS ORDERED: SODIUM CHLORIDE 0.9% 1000 ML INFUS.BAG IV ONE (12:07)
[2022-05-31 13:20] LABS: BASO % 0.6 % (0-2.0); EOS % 0.8 % (0-4.5); HEMATOCRIT 23.4 % (32.4-45.2); HEMOGLOBIN 7.3 GM/dL (10.7-15.3); MCH 21.8 pg (25.7-33.7); MEAN CELL VOLUME 70.1 fl (80-96); MEAN PLT VOLUME 7.6 fl (7.5-11.1); MONO % 5.6 % (3.8-10.2); PLATELET COUNT 198 10^3/uL (134-434); RBC 3.34 M/mm3 (3.60-5.2); RDW 18.5 % (11.6-15.6); WHITE BLOOD COUNT 4.8 K/mm3 (4.0-10.0)
[2022-05-31 13:30] LABS: INR 1.95 (0.83-1.09); PROTHROMBIN TIME (PATIENT) 22.5 SEC (9.7-13.0)
[2022-05-31 13:33] LABS: ACTIVATED PTT 31.6 SECONDS (25.2-36.5)
[2022-05-31 13:41] LABS: CALCIUM 8.6 mg/dL (8.5-10.1)
[2022-05-31 13:43] LABS: ALBUMIN 3.4 g/dl (3.4-5.0); BLOOD UREA NITROGEN 12.1 mg/dL (7-18)
[2022-05-31 13:46] LABS: CREATININE 0.7 mg/dL (0.55-1.3)
[2022-05-31 13:48] LABS: BILIRUBIN,TOTAL 0.2 mg/dL (0.2-1); TOT PROT 7.4 g/dl (6.4-8.2)
[2022-05-31 14:21] VITALS: BP 115/71
[2022-05-31 14:24] LABS: ANISOCYTOSIS 0; MACROCYTOSIS 0; ROULEAU 1+
[2022-05-31 16:41] VITALS: PULSE 81; RESP 18
== END 2022-05-31 16:42 | disposition home or self-care (01) ==
LOC: JER 10:37
DX: R00.0 Tachycardia, unspecified (principal); I95.9 Hypotension, unspecified; D64.9 Anemia, unspecified; Z91.14 Patient's other noncompliance with medication regimen
CPT/HCPCS: 36415; 71045-TC-FY; 71275-TC; 80053; 82272; 84439; 84443; 84484; 85025; 85610; 85730; 93005; 93010; 99285-25; Q9967

== ENCOUNTER 2022-11-01 04:56 | Day surgery (SDC) | payer OTHER ==
[2022-10-31 08:49] VITALS: BMI 24.0
[2022-11-01] MEDS ORDERED: LIDOCAINE HCL/PF 2% SDV 5ML VIAL ONE (07:14)
[2022-11-01] MEDS ORDERED: MIDAZOLAM HCL 2 MG/2 ML SINGLE DOSE VIAL ONE (07:14)
[2022-11-01] MEDS ORDERED: PROPOFOL 20 ML ONE (07:14)
[2022-11-01] MEDS ORDERED: DEXAMETHASONE SOD PHOSPHATE 4 MG/1 ML VIAL ONE (08:41)
[2022-11-01] MEDS ORDERED: ceFAZolin SODIUM 1 GM VIAL ONE (08:41)
[2022-11-01] MEDS ORDERED: ceFAZolin SODIUM 1 GM VIAL IVPB ONE (08:45)
[2022-11-01] MEDS ORDERED: KETOROLAC TROMETHAMINE 30 MG/1 ML VIAL ONE (08:52)
[2022-11-01] MEDS ORDERED: ONDANSETRON 4 MG/2 ML VIAL ONE (08:52)
[2022-11-01] MEDS ORDERED: PROMETHAZINE HCL 25 MG/1 ML VIAL IVPB PRN (09:16)
[2022-11-01] MEDS ORDERED: oxyCODONE HCL 5 MG TABLET PO PRN ×2 (09:16)
[2022-11-01] MEDS ORDERED: ONDANSETRON 4 MG/2 ML VIAL IVPUSH PRN (09:16)
[2022-11-01] MEDS ORDERED: ACETAMINOPHEN 1000 MG/100 ML BAG IVPB ONE (09:17)
[2022-11-01] MEDS ORDERED: ACETAMINOPHEN 325 MG TABLET (FP) PO PRN (09:18)
[2022-11-01] MEDS ORDERED: IBUPROFEN 400 MG TABLET (FP) PO PRN (09:18)
[2022-11-01] MEDS ORDERED: LACTATED RINGERS SOLUTION 1,000 ML IV SCH (09:30)
[2022-11-01] MEDS ORDERED: ACETAMINOPHEN INJECTION 100 ML IVPB ONE (10:21)
[2022-11-01 11:05] VITALS: RESP 20; TEMP 98.3
[2022-11-01 11:22] VITALS: BP 110/69; PULSE 67
== END 2022-11-01 11:18 | disposition home or self-care (01) ==
LOC: JASU-SURG 04:56
PROVIDERS: ATTEND Specialist
PROC: 0U5B8ZZ Destruction of Endometrium, Via Natural or Artificial Opening Endoscopic (ICD-10-PCS; principal; 2022-11-01 08:00)
DX: N92.1 Excessive and frequent menstruation with irregular cycle (principal); N93.8 Other specified abnormal uterine and vaginal bleeding
CPT/HCPCS: 36415; 84703; 94760